=== PATIENT | female | born 1955 | race Caucasian/White ===

== ENCOUNTER 2017-09-26 16:01 | Inpatient (IN) | payer OTHER ==
[~2017-09-26] VITALS: Ht 162.6 cm; Wt 79.2 kg
[2017-09-26 17:07] LABS: BASOPHIL % 0.3 % (0-2); PLATELET COUNT 326 x10^3mcL (130-400); RED CELL DISTRIBUTION WIDTH 13.1 % (11.5-14.5)
[2017-09-26 17:16] LABS: CALCIUM 9.4 mg/dL (8.5-10.1); CHLORIDE SERUM 101 mmol/L (98-107); CREATININE SERUM 0.7 mg/dL (0.6-1.0); GFR1 > 60 mL/min; GLUCOSE SERUM 151 mg/dL (74-106); SODIUM SERUM 135 mmol/L (136-145)
[2017-09-26 17:25] LABS: ALBUMIN 3.7 g/dL (3.4-5.0); ALKALINE PHOSPHATASE 129 U/L (46-116); ALT/SGPT 124 U/L (14-59); AST/SGOT 64 U/L (15-37); BILIRUBIN TOTAL 0.3 mg/dL (0.20-1.00); HDL CHOLESTEROL 55 mg/dL (40-60); TOTAL PROTEIN, SERUM 7.8 g/dL (6.4-8.2)
[2017-09-26 17:31] LABS: CHOLESTEROL 238 mg/dL (<200)
[2017-09-26 18:29] LABS: microscopic required? YES; urine erythrocyte NEGATIVE (NEGATIVE)
[2017-09-27 01:21] VITALS: BP 149/78
[2017-09-27 01:26] VITALS: Ht 162.6 cm; Wt 79.2 kg
[2017-09-27 03:01] LABS: CHOLESTEROL/HDL RATIO 3.5; PHOSPHOROUS 3.7 mg/dL (2.5-4.9)
[2017-09-27 03:08] LABS: T3 TOTAL 1.28 ng/mL
[2017-09-27 03:12] LABS: FREE T4 1.35 ng/dL (0.76-1.46); FREE THYROXINE INDEX 3.6 ug/dL (1.4-4.5); T4(THYROXINE) 10.3 ug/dL (4.7-13.3)
[2017-09-27 05:00] VITALS: BP 117/56
[2017-09-27 05:24] VITALS: BP 117/56
[2017-09-27 06:20] LABS: BASOPHIL % 0.5 % (0-2); PLATELET COUNT 267 x10^3mcL (130-400); RED CELL DISTRIBUTION WIDTH 13.2 % (11.5-14.5)
[2017-09-27 06:47] LABS: CALCIUM 8.3 mg/dL (8.5-10.1); CARBON DIOXIDE 22.8 mmol/L (21-32); CHLORIDE SERUM 107 mmol/L (98-107); CREATININE SERUM 0.7 mg/dL (0.6-1.0); GFR1 > 60 mL/min; GLUCOSE SERUM 158 mg/dL (74-106); POTASSIUM SERUM 3.5 mmol/L (3.5-5.1); SODIUM SERUM 137 mmol/L (136-145)
[2017-09-27] MEDS ORDERED: ZES5 PO (08:02)
[2017-09-27] MEDS ORDERED: GLU500 PO (08:03)
[2017-09-27] MEDS ORDERED: LEVAQUIN250 M1 PO (08:04)
[2017-09-27] MEDS ORDERED: LAC PO (08:08)
[2017-09-27 08:19] VITALS: BP 135/78
[2017-09-27 09:46] LABS: AMPHETAMINE QUAL UR NONE DETECTED (NEG <=1000)
[2017-09-27] MEDS ORDERED: EXPECTORAN100 MG/52 PO (09:51)
[2017-09-27 13:32] VITALS: BP 135/78
[2017-09-27 13:46] VITALS: BP 104/64
== END 2017-09-27 14:05 | disposition home or self-care (01) | DRG 720 ==
LOC: ED 16:01 → DU 09-27 00:45
PROVIDERS: Emergency Medicine; Family Medicine
DX: A41.9 Sepsis, unspecified organism (principal); N17.0 Acute kidney failure with tubular necrosis; N10 Acute pyelonephritis; E87.1 Hypo-osmolality and hyponatremia; E78.00 Pure hypercholesterolemia, unspecified; I10 Essential (primary) hypertension; Z88.2 Allergy status to sulfonamides
CPT/HCPCS: 82962; 83880; 84439; 87804; 94150; J0696; J1885; J7030; Q9967

== ENCOUNTER 2018-06-25 08:39 | Emergency (ER) | payer OTHER ==
[~2018-06-25] VITALS: Ht 160 cm; Wt 85.7 kg
[~2018-06-25 08:39] MED LIST: EXPECTORAN100 MG/52 PO; GLU500 PO; LAC PO; LEVAQUIN250 M1 PO; ZES5 PO
[2018-06-25 08:43] VITALS: Ht 160 cm; Wt 85.7 kg
[2018-06-25 11:13] VITALS: BP 135/68
== END 2018-06-25 11:37 | disposition home or self-care (01) ==
LOC: ED 08:39
DX: J06.9 Acute upper respiratory infection, unspecified (principal); E78.00 Pure hypercholesterolemia, unspecified; I10 Essential (primary) hypertension; E11.9 Type 2 diabetes mellitus without complications; Z88.2 Allergy status to sulfonamides
CPT/HCPCS: 87804

== ENCOUNTER 2018-08-07 13:57 | Emergency (ER) | payer OTHER | END 2018-08-07 17:28 | disposition home or self-care (01) | LOC: ED 13:57 ==